=== PATIENT | female | born 1960 | race African-American/Black ===

== ENCOUNTER 2025-04-16 11:06 | Outpatient (CLI) | payer MEDICARE, MEDICAID | END 2025-04-16 11:07 | disposition home or self-care (01) | LOC: BICMAMMO 11:06 | PROVIDERS: ATTEND Physician Assistant | DX: Z12.31 Encounter for screening mammogram for malignant neoplasm of breast (principal); Z80.3 Family history of malignant neoplasm of breast | CPT/HCPCS: 77063; 77067 ==